=== PATIENT | male | born 1955 | race Caucasian/White ===

== ENCOUNTER 2017-02-28 10:28 | Emergency (ER) | payer MEDICAID ==
[~2017-02-28] VITALS: Ht 177.8 cm; Wt 72.1 kg
[2017-02-28 10:33] VITALS: BP 145/77
[2017-02-28] MEDS ORDERED: OXYcodone/APAP 5/325MG TABLET PO ONE (11:00)
[2017-02-28] MEDS ORDERED: OXYcodone/APAP 5/325MG TABLET ONE (11:13)
== END 2017-02-28 13:19 | disposition home or self-care (01) ==
LOC: ED 11:17
DX: S20.212A Contusion of left front wall of thorax, initial encounter (principal); W14.XXXA Fall from tree, initial encounter; Y93.89 Activity, other specified; Y92.89 Other specified places as the place of occurrence of the external cause; Y99.8 Other external cause status
CPT/HCPCS: 71250; 99284

== ENCOUNTER 2017-05-16 12:45 | Emergency (ER) | payer MEDICAID ==
[~2017-05-16] VITALS: Ht 177.8 cm; Wt 77.4 kg
[~2017-05-16 12:45] MED LIST: HYDR-3307 PO
[2017-05-16 12:51] VITALS: BP 126/68
== END 2017-05-16 14:32 | disposition home or self-care (01) ==
LOC: ED 13:55
DX: B35.9 Dermatophytosis, unspecified (principal)
CPT/HCPCS: 99283

== ENCOUNTER 2017-12-27 20:40 | Emergency (ER) | payer MEDICAID ==
[~2017-12-27] VITALS: Ht 177.8 cm; Wt 75.0 kg
[2017-12-27 20:45] VITALS: BP 107/71
== END 2017-12-27 22:33 | disposition home or self-care (01) ==
LOC: ED 22:27
DX: G43.C1 Periodic headache syndromes in child or adult, intractable (principal)
CPT/HCPCS: 70450; 93005; 99284

== ENCOUNTER 2018-09-22 10:47 | Emergency (ER) | payer BC, MEDICAID ==
[~2018-09-22] VITALS: Ht 177.8 cm; Wt 80.4 kg
--- NOTE | 2018-09-22 12:15 | NUR ---
late entry: report taken from EWA Marquez, care assumed at this time.
--- NOTE | 2018-09-22 12:40 | NUR ---
pt presents to ED with c/o left leg cramping that progressed to left arm and finally left chest. pt now denies any cramping but states he has residual "soreness" to left chest, level 4/10. pt's symptoms started last night. pt placed on all monitors, labs pending. pt is nsr on quality assurance monitor body, no ectopy, rate 60s. pt a&o, resps even and unlabored ,nadn. call light in reach, pt updated with POC.
[2018-09-22 12:42] LABS: BASOPHILS # (AUTO) 0.09 x10^3/uL (0-0.1); BASOPHILS % (AUTO) 1 % (0-1); EOSINOPHILS # (AUTO) 0.16 x10^3/uL (0-0.4); EOSINOPHILS % (AUTO) 2 % (1-7); LYMPHOCYTES # (AUTO) 2.91 x10^3/uL (1-3.4); LYMPHOCYTES % (AUTO) 32 % (22-44); MD NO; MEAN CORPUSCULAR HEMOGLOBIN 33.2 pg (27.5-34.5); MEAN CORPUSCULAR HGB CONC 33.5 g/dL (33.2-36.2); MEAN CORPUSCULAR VOLUME 99.1 fL (81-97); MEAN PLATELET VOLUME 8.1 fL (7.4-10.4); MONOCYTES # (AUTO) 1.03 x10^3/uL (0.2-0.8); MONOCYTES % (AUTO) 11 % (2-9); NEUTROPHILS # (AUTO) 4.83 x10^3/uL (1.8-6.8); NEUTROPHILS % (AUTO) 54 % (42-75); PLATELET COUNT 236 x10^3/uL (130-400); RED BLOOD COUNT 4.89 x10^6/uL (4.38-5.82); RED CELL DISTRIBUTION WIDTH 14.4 % (9.4-14.8)
[2018-09-22] MEDS ORDERED: BUPR1FIL3 SL (12:42)
[2018-09-22 12:53] LABS: ALANINE AMINOTRANSFERASE 69 U/L (12-78); ALBUMIN 3.9 g/dL (3.4-5.0); ANION GAP 7 mmol/L (5-15); CALCIUM 8.7 mg/dL (8.5-10.1); CHLORIDE 102 mmol/L (98-107); CREATININE 1.27 mg/dL (0.7-1.3)
[2018-09-22 12:57] LABS: ALKALINE PHOSPHATASE 112 U/L (45-117); BILIRUBIN,TOTAL 0.4 mg/dL (0.2-1.0); CREATINE KINASE, TOTAL 110 U/L (39-308); TOTAL PROTEIN 8.1 g/dL (6.4-8.2); TROPONIN I < 0.015 ng/mL (0.000-0.045)
[2018-09-22 13:31] VITALS: BP 149/69
--- NOTE | 2018-09-22 13:32 | NUR ---
PT GIVEN DC INSTRUCTIONS, PT A&O, RESPS EVEN AND UNLABORED, NSR ON REPORTING MANAGER WITHOUT ECTOPY. PT HAD NO COMPLAINT AT TIME OF DC. PT AMB TO DC DESK WITH STEADY GAIT, ALL QUESTIONS ANSWERED.
== END 2018-09-22 13:42 | disposition home or self-care (01) ==
LOC: ED 13:36
DX: M62.831 Muscle spasm of calf (principal); F17.200 Nicotine dependence, unspecified, uncomplicated; Z86.19 Personal history of other infectious and parasitic diseases
CPT/HCPCS: 36415; 71046; 80053; 82550; 83735; 84100; 84484; 85025; 93005; 99284